=== PATIENT | female | born 1985 | race Caucasian/White ===

== ENCOUNTER 2023-09-05 01:01 | Emergency (ER) | payer BC, OTHER, SELFPAY ==
[2023-09-05 01:05] VITALS: BP 121/88; PULSE 99; RESP 20; TEMP 36.5; O2SAT 96; BMI 20.9
--- NOTE | 2023-09-05 01:14 | ED.ABDPAIN1 ---
HPI - Abdominal Pain General Chief Complaint: Abdominal Pain Stated Complaint: OTHER Time Seen by Provider: 09/05/23 01:06 Source: patient Mode of arrival: walk-in Limitations: no limitations History of Present Illness HPI narrative: Patient developed diarrhea around 9pm, followed shortly by diffuse abdominal pain, worse on upper abdomen just left of center. Nausea but no vomiting. Pain is both sharp and crampy. Patient has been to the bathroom passing liquid stool about 10 times in the last 4 hours. No recent illness or injury. no known spoiled food or concern for food poisoning. PMHx - hysterectomy and nephrectomy (donated a kidney) Related Data Home Medications Medication Instructions Recorded Confirmed dextroamphetamine-amphetamine ER PO 09/05/23 25 mg 24hr capsule,extend release topiramate 25 mg tablet (Topamax) 25 mg PO BID 09/05/23 09/05/23 Previous Rx's Medication Instructions Recorded hyoscyamine sulfate 0.125 mg 0.125 mg PO Q6H PRN abdominal pain 09/05/23 sublingual tablet (Levsin/SL) #20 tabs ondansetron 4 mg disintegrating 4 mg PO Q6H PRN nausea and 09/05/23 tablet vomiting #14 tabs Allergies Allergy/AdvReac Type Severity Reaction Status Date / Time bee venom protein (honey bee) Allergy Verified 09/05/23 01:04 Exam Narrative Exam Narrative: Nurses notes and vital signs reviewed and patient is not hypoxic. afebrile General: Well-appearing and in no apparent distress. Skin: Warm, dry, no pallor noted. No rash. Eye: Pupils are equal, round and EOMI. No scleral icterus. Ears, Nose, Mouth, and Throat: Oral mucosa is dry Cardiovascular: Regular Rate and Rhythm without murmur, gallop or rub. Respiratory: No accessory muscle use or respiratory distress. Lungs are clear to auscultation, no wheezing, rales or rhonchi Back: No midline thoracic or lumbar vertebral tenderness. Right CVA tenderness. No left CVAT Musculoskeletal: normal ROM GI: Abdomen is soft, non-distended. Normal bowel sounds. No masses appreciated. Diffuse abdominal tenderness to palpation. No rebound, guarding, or rigidity noted. Neurological: A&O x4. No cranial nerve dysfunction observed. No truncal ataxia. Moves all extremities. Sensation intact. Psychiatric: Cooperative and interactive. Normal mood and affect. Constitutional Vital Signs, click to edit/add: Last Vital Signs Temp 97.7 F 09/05/23 01:05 Pulse 99 H 09/05/23 01:05 Resp 20 09/05/23 01:05 BP 121/88 09/05/23 01:05 Pulse Ox 96 09/05/23 01:05 O2 Del Method Room Air 09/05/23 01:05 Course Vital Signs Vital signs: Vital Signs Temperature 97.7 F 09/05/23 01:05 Pulse Rate 99 H 09/05/23 01:05 Respiratory Rate 20 09/05/23 01:05 Blood Pressure 121/88 09/05/23 01:05 Pulse Oximetry 96 09/05/23 01:05 Oxygen Delivery Method Room Air 09/05/23 01:05 Temperature 97.7 F 09/05/23 01:05 Pulse Rate 99 H 09/05/23 01:05 Respiratory Rate 20 09/05/23 01:05 Blood Pressure 121/88 09/05/23 01:05 Pulse Oximetry 96 09/05/23 01:05 Oxygen Delivery Method Room Air 09/05/23 01:05 MDM - Abdominal Pain MDM Narrative Medical decision making narrative: Peripheral IV established and blood drawn and sent for testing. The patient was ordered to receive normal saline IV fluid, IV Toradol and IV Zofran for symptoms. I asked that a sample of the diarrhea be sent for testing as well. She was ordered to undergo CT scanning of the abdomen pelvis. Normal CBC and CMP except for mildly elevated Cl. Lipase negative. CT with findings consistent with enteritis. Radiologist's report is detailed. Patient informed of findings/results. She felt better after ED treatment and wants to go home. She was given PO challenge before being discharged home. GI panel revealed Norovirus infection and one fo the ED nurses let her know. Lab Data Attestation: I reviewed the patient's lab results. Labs: Lab Results 09/05/23 09/05/23 Range/Units 01:20 01:30 WBC 10.5 (4.0-11.0) 10^3/uL RBC 4.81 (4.20-5.40) 10^6/uL Hgb 15.1 (12.0-16.0) g/dL Hct 45.5 (36.0-48.0) % MCV 94.6 (81.0-99.0) fL MCH 31.4 (26.7-34.0) pg MCHC 33.2 (29.9-35.2) g/dL RDW 12.6 (11.0-15.0) % Plt Count 165 (150-450) 10^3/uL MPV 10.5 (9.5-13.5) fL Neut % (Auto) 84.6 H (43.0-75.0) % Lymph % (Auto) 8.5 L (20.5-60.0) % [place] % (Auto) 5.6 (1.7-12.0) % Eos % (Auto) 0.8 L (0.9-7.0) % Baso % (Auto) 0.2 (0.2-2.0) % Neut # (Auto) 8.9 H (1.4-6.5) 10^3/uL Lymph # (Auto) 0.9 L (1.2-3.8) 10^3/uL [place] # (Auto) 0.6 (0.3-0.8) 10^3/uL Eos # (Auto) 0.1 (0.0-0.7) 10^3/uL Baso # (Auto) 0.0 (0.0-0.1) 10^3/uL Abs Immat Gran (auto) 0.03 (0.00-0.03) 10^3/uL Imm/Tot Granulo (auto) 0.3 (0.0-0.5) % Sodium 143 (136-145) mmol/L Potassium 3.9 (3.5-5.1) mmol/L Chloride 111 H (98-107) mmol/L Carbon Dioxide 22.2 (21.0-32.0) mmol/L Anion Gap 13.7 BUN 15.0 (7.0-18.0) mg/dL Creatinine 1.07 H (0.55-1.02) mg/dL Est GFR ( Amer) >60 (>=60) Est GFR (Non-Af Amer) 57 L (>=60) BUN/Creatinine Ratio 14.0 Glucose 93 (74-106) mg/dL Calcium 8.9 (8.5-10.1) mg/dL Total Bilirubin 0.9 (0.2-1.0) mg/dL AST 18 (15-37) U/L ALT 31 (14-59) U/L Alkaline Phosphatase 68 (46-116) U/L Total Protein 7.5 (6.4-8.2) g/dL Albumin 4.2 (3.4-5.0) g/dL Globulin 3.3 g/dL Albumin/Globulin Ratio 1.3 Lipase 23.0 (16.0-77.0) U/L Stl C. cayetanensis PCR Not detected (NOT DETECTE) Stool Rotavirus (PCR) Not detected (NOT DETECTE) Stool Adenovirus (PCR) Not detected (NOT DETECTE) Stool Astrovirus (PCR) Not detected (NOT DETECTE) Stool Campylobacter PCR Not detected (NOT DETECTE) Stool Cryptosporidium PCR Not detected (NOT DETECTE) St Sh/Enteroin Ecoli PCR Not detected (NOT DETECTE) Stl Enterotoxigenic E PCR Not detected (NOT DETECTE) Stool EPEC (PCR) Not detected (NOT DETECTE) Stl E. histolytica PCR Not detected (NOT DETECTE) Stool Giardia Lamblia PCR Not detected (NOT DETECTE) Stl P. shigelloides PCR Not detected (NOT DETECTE) Stool Salmonella PCR Not detected (NOT DETECTE) Stool Sapovirus (PCR) Not detected (NOT DETECTE) Stl Shiga-like Tx 1 PCR Not detected (NOT DETECTE) St Y.enterocolitica PCR Not detected (NOT DETECTE) Stl Vibrio cholerae PCR Not detected (NOT DETECTE) Stl Enteroaggr Ecoli PCR Not detected (NOT DETECTE) Stl Norovirus GI/GII PCR Detected A (NOT DETECTE) C. difficile Toxin A&B Not detected (NOT DETECTE) Vibrio Culture Not detected (NOT DETECTE) Imaging Data CT scan - abdomen: Radiologist's impression: ITS Impressions Abdomen/Pelvis CT 09/05/23 01:20 IMPRESSION: 1. Liquid stool throughout the small bowel loops and colon with some mildly dilated fluid-filled loops of small bowel. These findings likely enteritis and diarrhea. 2. Normal appendix. 3. Status post hysterectomy and left nephrectomy. 4. Suspected left ovarian hemorrhagic cyst. Electronically authenticated by: Ap IBRAHIM Date: 09/05/2023 02:10 Discharge Plan Discharge Chief Complaint: Abdominal Pain Clinical Impression: Enteritis, Acute gastroenteropathy due to Norovirus Patient Disposition: Home, Self-Care Time of Disposition Decision: 02:35 Prescriptions / Home Meds: New hyoscyamine sulfate [Levsin/SL] 0.125 mg tablet, sublingual 0.125 mg PO Q6H PRN (Reason: abdominal pain) Qty: 20 0RF ondansetron 4 mg tablet,disintegrating 4 mg PO Q6H PRN (Reason: nausea and vomiting) Qty: 14 0RF No Action dextroamphetamine-amphetamine 25 mg capsule,extended release 24hr PO topiramate [Topamax] 25 mg tablet 25 mg PO BID Instructions: Enteritis (ED) Stand Alone Forms: Portal Instructions Referrals: Physician,Non-Staff, MD [Primary Care Provider] - 1 week Discharge Date/Time: 09/05/23 03:08
--- NOTE | 2023-09-05 01:20 | CT_ITS ---
The [address] [address] Patient Name: CHAD COTA MRN: [id number] date: 1985 Sex: F Assigned Patient Location: ER Current Patient Location: ER Accession/Order Number: [id number] Exam Date: 09/05/2023 01:43 Report Date: 09/05/2023 02:10 At the request of: REX OJNES Procedure: CT abdomen pelvis w con EXAM: CT abdomen pelvis w con HISTORY: abdominal pain, diarrhea COMPARISON: CT abdomen and pelvis examination dated 04/20/2014. TECHNIQUE: Axial CT images through the abdomen and pelvis were obtained after the intravenous administration of 100 mL Omnipaque 300 contrast. Coronal and sagittal reformats were obtained. Dose reduction techniques were achieved by using automated exposure control and/or adjustment of mA and/or kV according to patient size and/or use of iterative reconstruction technique. FINDINGS: There is a calcified granuloma in the right middle lobe. Abdomen: The liver and spleen enhance homogeneously without focal lesion. There is no intra or extrahepatic biliary duct dilatation. The gallbladder is unremarkable. The patient is status post a left nephrectomy. The pancreas, adrenal glands, right kidney, and appendix are unremarkable. There is no mesenteric or retroperitoneal lymphadenopathy. Liquid stool is seen throughout the small bowel loops and colon with some dilated fluid-filled loops of small bowel measuring up to 3.5 cm. Pelvis: The bladder is collapsed and not well evaluated. The rectum is unremarkable. There is no iliac or inguinal lymphadenopathy. The patient is status post a hysterectomy. The right ovary is not seen. There is a left ovarian hemorrhagic cyst. Bone windows show no aggressive osseous lesions. CT/CT abdomen pelvis w con IMPRESSION: 1. Liquid stool throughout the small bowel loops and colon with some mildly dilated fluid-filled loops of small bowel. These findings likely enteritis and diarrhea. 2. Normal appendix. 3. Status post hysterectomy and left nephrectomy. 4. Suspected left ovarian hemorrhagic cyst. Electronically authenticated by: Ap IBRAHIM Date: 09/05/2023 02:10
[2023-09-05] MEDS: 0.9 % SODIUM CHLORIDE 1,000 ML 999 ML IV (01:35)
[2023-09-05] MEDS: ONDANSETRON PF 4 MG/2 ML VIAL IV (01:36)
[2023-09-05] MEDS: KETOROLAC TROMETHAMINE 30 MG/ML VIAL IVP (01:36)
[2023-09-05 01:39] LABS: Adenovirus F 40/41 NOT DETECTED (NOT DETECTE); Astrovirus NOT DETECTED (NOT DETECTE); Campylobacter NOT DETECTED (NOT DETECTE); Cryptosporidium NOT DETECTED (NOT DETECTE); Cyclospora cayetanensis NOT DETECTED (NOT DETECTE); Entamoeba histolytica NOT DETECTED (NOT DETECTE); Enteroaggregative E.coli NOT DETECTED (NOT DETECTE); Enteropathogenic E.coli NOT DETECTED (NOT DETECTE); Enterotoxigenic E. coli NOT DETECTED (NOT DETECTE); Giardia lamblia NOT DETECTED (NOT DETECTE); Plesiomonas shigelloides NOT DETECTED (NOT DETECTE); Rotavirus A NOT DETECTED (NOT DETECTE); Salmonella NOT DETECTED (NOT DETECTE); Sapovirus NOT DETECTED (NOT DETECTE); Shiga-like toxin-producing E.C NOT DETECTED (NOT DETECTE); Shigella/Enteroinvasive E.coli NOT DETECTED (NOT DETECTE); Vibrio NOT DETECTED (NOT DETECTE); Vibrio cholerae NOT DETECTED (NOT DETECTE); Yersinia enterocolitica NOT DETECTED (NOT DETECTE)
[2023-09-05 01:39] LABS: Basophils Percent Auto 0.2 % (0.2-2.0); Eosinophils Absolute Auto 0.1 10^3/uL (0.0-0.7); Eosinophils Percent Auto 0.8 % (0.9-7.0); Hematocrit 45.5 % (36.0-48.0); Hemoglobin 15.1 g/dL (12.0-16.0); Immature Granulocytes Abs Auto 0.03 10^3/uL (0.00-0.03); Immature Granulocytes Pct Auto 0.3 % (0.0-0.5); Lymphocytes Absolute Auto 0.9 10^3/uL (1.2-3.8); Lymphocytes Percent Auto 8.5 % (20.5-60.0); Mean Corpuscular HGB Conc 33.2 g/dL (29.9-35.2); Mean Corpuscular Hemoglobin 31.4 pg (26.7-34.0); Mean Corpuscular Volume 94.6 fL (81.0-99.0); Mean Platelet Volume 10.5 fL (9.5-13.5); Monocytes Absolute Auto 0.6 10^3/uL (0.3-0.8); Monocytes Percent Auto 5.6 % (1.7-12.0); Neutrophils Absolute Auto 8.9 10^3/uL (1.4-6.5); Neutrophils Percent Auto 84.6 % (43.0-75.0); Platelet Count 165 10^3/uL (150-450); Red Blood Count 4.81 10^6/uL (4.20-5.40); Red Cell Distribution Width 12.6 % (11.0-15.0); White Blood Count 10.5 10^3/uL (4.0-11.0)
[2023-09-05 01:54] LABS: Alanine Aminotransferase 31 U/L (14-59); Albumin Globulin Ratio 1.3; Albumin Level 4.2 g/dL (3.4-5.0); Alkaline Phosphatase 68 U/L (46-116); Anion Gap 13.7; Aspartate Amino Transferase 18 U/L (15-37); Bilirubin Total 0.9 mg/dL (0.2-1.0); Calcium 8.9 mg/dL (8.5-10.1); Carbon Dioxide 22.2 mmol/L (21.0-32.0); Chloride 111 mmol/L (98-107); Estimated GFR (African America >60 (>=60); Estimated GFR (Non-African Ame 57 (>=60); Globulin 3.3 g/dL; Glucose 93 mg/dL (74-106); Potassium 3.9 mmol/L (3.5-5.1); Sodium 143 mmol/L (136-145); Total Protein 7.5 g/dL (6.4-8.2)
[2023-09-05] MEDS: PANTOPRAZOLE SODIUM 40 MG VIAL IV (02:10)
[2023-09-05] MEDS: HYOSCYAMINE SULFATE 0.125 MG TAB.SUBL SL (02:56)
[2023-09-05 02:58] LABS: Norovirus GI/GII DETECTED (NOT DETECTE)
== END 2023-09-05 03:08 | disposition home or self-care (01) ==
PROVIDERS: Emergency Provider Emergency Medicine
DX: A08.11 Acute gastroenteropathy due to Norwalk agent (principal); Z90.710 Acquired absence of both cervix and uterus; Z90.5 Acquired absence of kidney; Z79.899 Other long term (current) drug therapy
CPT/HCPCS: 36415; 74177; 80053; 83690; 85025; 87507; 96361; 96374; 96375; 99284; J1885; J2405; Q9967

== ENCOUNTER 2025-05-13 21:47 | Emergency (ER) | payer BC, SELFPAY ==
[2025-05-13 21:57] VITALS: BP 123/82; PULSE 80; TEMP 36.7; O2SAT 100; BMI 19.1
--- NOTE | 2025-05-13 22:17 | CT_ITS ---
The [place] [id number] Patient Name: CHAD COTA MRN: [id number] date: 1985 Sex: F Assigned Patient Location: ER Current Patient Location: .[facility] Accession/Order Number: [id number] Exam Date: 05/13/2025 22:35 Report Date: 05/13/2025 23:05 At the request of: OVIDIO CAVAZOS DO Procedure: CT abdomen pelvis w con CT ABDOMEN AND PELVIS WITH INTRAVENOUS CONTRAST: CLINICAL HISTORY: LUQ pain, rib pain as well COMPARISON: 09 05 2023 TECHNIQUE: Spiral images were obtained through the abdomen and pelvis following the administration of intravenous contrast. This CT exam was performed using one or more following dose reduction techniques: Automated exposure control, adjustment of the mA and/or kV according to patient size, or use of iterative reconstruction technique. FINDINGS: Lung Bases: [No focal opacity] Organs: Punctate right sided calculi, nonobstructive. The liver, spleen, adrenals, right kidney, pancreas unremarkable. Gallbladder contracted. Left kidney is surgically absent. No definite soft tissue within the nephrectomy bed. GI: Mild to moderate retained stool throughout the colon. No bowel obstruction. Appendix unremarkable.[ Pelvis:[Uterus absent. No adnexal mass. Bladder is unremarkable] Peritoneum/Retroperitoneum:No free air or free fluid. Aorta is not aneurysmal. No bulky adenopathy.[ Abd wall/Bones:Minor degenerative changes of the sacroiliac joints. No suspicious osseous lesion. CT/CT abdomen pelvis w con IMPRESSION: Negative Bowel small bowel obstruction Impression dictated by: Yg Mir M.D. 05/13/2025 11:05 PM Dictation Location: [employer] [facility] Electronically authenticated by: [id number] Y Date: 05/13/2025 23:05
[2025-05-13 22:31] LABS: Hematocrit 37.7 % (36.0-48.0); Hemoglobin 12.6 g/dL (12.0-16.0); Immature Granulocytes Abs Auto 0.01 10^3/uL (0.00-0.03); Immature Granulocytes Pct Auto 0.2 % (0.0-0.5); Lymphocytes Absolute Auto 1.5 10^3/uL (1.2-3.8); Mean Corpuscular HGB Conc 33.4 g/dL (29.9-35.2); Mean Corpuscular Hemoglobin 30.7 pg (26.7-34.0); Mean Corpuscular Volume 91.7 fL (81.0-99.0); Platelet Count 174 10^3/uL (150-450); Red Blood Count 4.11 10^6/uL (4.20-5.40); White Blood Count 5.5 10^3/uL (4.0-11.0)
[2025-05-13] MEDS: FAMOTIDINE/PF 20 MG/2 ML VIAL IV (22:31)
[2025-05-13] MEDS: DIAZEPAM 5 MG TABLET PO (22:31)
[2025-05-13] MEDS: KETOROLAC TROMETHAMINE 30 MG/ML VIAL IVP (22:32)
[2025-05-13 22:44] LABS: Alanine Aminotransferase 25 U/L (14-59); Albumin Globulin Ratio 1.3; Albumin Level 3.8 g/dL (3.4-5.0); Alkaline Phosphatase 67 U/L (46-116); Anion Gap 12.6; Aspartate Amino Transferase 13 U/L (15-37); Blood Urea Nitrogen 15.0 mg/dL (7.0-18.0); Calcium 8.8 mg/dL (8.5-10.1); Carbon Dioxide 23.1 mmol/L (21.0-32.0); Chloride 109 mmol/L (98-107); Estimated GFR (African America >60 (>=60 mL/min/1.73m^2); Estimated GFR (Non-African Ame >60 (>=60 mL/min/1.73m^2); Globulin 3.0 g/dL; Glucose 102 mg/dL (74-106); Lipase 25.0 U/L (16.0-77.0); Potassium 3.7 mmol/L (3.5-5.1); Sodium 141 mmol/L (136-145); Total Protein 6.8 g/dL (6.4-8.2)
[2025-05-13 23:01] LABS: Glucose Urine UA NEGATIVE (NEGATIVE)
[2025-05-13 23:08] LABS: Cast Seen? NONE SEEN #/LPF (NONE SEEN); Crystals Seen? None Seen #/HPF (None Seen); Urine Culture Indicated YES-FRMC
--- NOTE | 2025-05-14 01:44 | ED_ITS ---
HPI HPI - General Adult General Chief complaint: Abdominal Pain Stated complaint: Abdominal Pain Time Seen by Provider: 05/13/25 21:51 Source: patient Mode of arrival: walk-in History of Present Illness HPI narrative: Patient is a 40-year-old female presenting to the emergency department for evaluation of left upper quadrant abdominal/rib pain. Patient states her symptoms have been ongoing for the last 10 days and progressively getting worse. She has tried ibuprofen which only minimally helps her symptoms. She states her pain was so severe the other day and that it made her vomit. She denies any trauma. She states she has chronic constipation, but nothing is changed with her bowel habits. She denies any chest pain or shortness of breath. No fevers or chills. She has a history of left nephrectomy from a donation. She denies dysuria or hematuria. Related Data Home Medications ?Medication ?Instructions ?Recorded ?Confirmed dextroamphetamine-amphetamine ER PO 09/05/23 25 mg 24hr capsule,extend release topiramate 25 mg tablet (Topamax) 25 mg PO BID 4 09/05/23 Previous Rx's ?Medication ?Instructions ?Recorded hyoscyamine sulfate 0.125 mg 0.125 mg PO Q6H PRN abdom inal pain 09/05/23 sublingual tablet (Levsin/SL) #20 tabs ondansetron 4 mg disintegrating 4 mg PO Q6H PRN nausea and 09/05/23 tablet vomiting #14 tabs methocarbamol 500 mg tablet 500 mg PO Q8H #20 tabs 05/28 Allergies Allergy/AdvReac Type Severity Reaction Status Date / Time bee venom protein (honey bee) Allergy Hives Verified 05/13/25 21:56 Opioid HPI Opioid Management Most Recent Opioid Data: Last Pain Scale 3 09/05/23, 02:41 Review of Systems ROS Status of ROS 10 or more systems reviewed and unremark able except as noted in history and below PFSH PFSH Social History Little interest or pleasure in doing things: not at all Feeling down, depressed, or hopeless: not at all Exam Narrative Exam Narrative: CONSTITUTIONAL: Appears to be somewhat uncomfortable, answering questions and following commands appropriately SKIN: Was warm and dry, no rashes on the chest/abdomen. EYES: Sclerae white. EARS, NOSE, THROAT: Moist oral mucosa. RESPIRATORY: Clear to auscultation bilaterally, no wheezes, crackles, or stridor, no use of accessory muscles CARDIOVASCULAR: Normal rate and regular rhythm. There is no S3, S4, murmur, rub. GASTROINTESTINAL: Mild tenderness to palpation in the left upper quadrant. No r ebound tenderness or guarding. Nondistended. MUSCULOSKELETAL: There is reproducible tenderness to palpation in left lower ribs at the midclavicular line. NEUROLOGIC: Patient is awake and alert. Facies were symmetrical. Constitutional Vital Signs, click to edit/add: Last Vital Signs Temp 98.1 F 05/13/25 21:57 Pulse 80 05/13/25 21:57 Resp 20 05/13/25 21:57 BP 123/82 05/13/25 21:57 Pulse Ox 100 05/13/25 21:57 O2 Del Method Room Air 05/13/25 21:57 Course Vital Signs Vital signs: Vital Signs Temperature 98.1 F 05/13/25 21:57 Pulse Rate 80 05/13/25 21:57 Respiratory Rate 20 05/13/25 21:57 Blood Pressure 123/82 05/13/25 21:57 Pulse Oximetry 100 05/13/25 21:57 Oxygen Delivery Method Room Air 05/13/25 21:57 Temperature 98.1 F 05/13/25 21:57 Pulse Rate 80 05/13/25 21:57 Respiratory Rate 20 05/13/25 21:57 Blood Pressure 123/82 05/13/25 21:57 Pulse Oximetry 100 05/13/25 21:57 Oxygen Delivery Method Room Air 05/13/25 21:57 Medical Decision Making MDM Narrative Medical decision making narrative: Patient is a 40-year-old female presenting to the emergency department with 10- day history of worsening left upper quadrant abdominal pain and left-sided rib pain. Vital signs arrival are within normal limits. She is afebrile and hemodynamically stable. Examination as noted above. My clinical impression is that the patient symptoms are musculoskeletal in nature as her pain is easily reproducible upon palpation of her ribs. I did order CT scan to rule out i etiologies such as splenic pathologies, pancreatitis, or other intra-abdominal pathologies. IV was established and laboratory studies were obtained. She was treated with oral Valium and IV ketorolac. Laboratory studies were unremarkable. No significant electrolyte or metabolic derangement. No evidence of acute kidney injury. No anemia, leukocytosis, or thrombocytopenia. No transaminitis or hyperbilirubinemia. Lipase not elevated. Urinalysis was unremarkable. CT abdomen/pelvis independently reviewed and interpreted by myself and radiology demonstrated no acute intra-abdominal pathologies. On reevaluation, the patient states her pain is still present. However, I cannot identify any acute, emergent processes that would require hospitalization. Her symptoms are likely musculoskeletal in nature. I do believe the patient is stable for discharge. They were instructed to follow up with their PCP for further care. Return precautions were given including any new or worsening symptoms. They were given a prescription for methocarbamol. Patient understands and agrees to the plan. FINAL IMPRESSION: #Acute left-sided abdominal and rib pain DISPOSITION: Discharged home CONDITION: Fair Lab Data Lab results reviewed: Yes I reviewed the patient's lab results Labs: Lab Results 05/13/25 05/13/25 Range/Units 22:20 22:30 WBC 5.5 (4.0-11.0) 10^3/uL RBC 4.11 L (4.20-5.40) 10^6/uL Hgb 12.6 (12.0-16.0) g/dL Hct 37.7 (36.0-48.0) % MCV 91.7 (81.0-99.0) fL MCH 30.7 (26.7-34.0) pg MCHC 33.4 (29.9-35.2) g/dL RDW 14.6 (11.0-15.0) % Plt Count 174 (150-450) 10^3/uL MPV 10.5 (9.5-13.5) fL Neut % (Auto) 64.2 (43.0-75.0) % Lymph % (Auto) 26.4 (20.5-60.0) % [place] % (Auto) 7.8 (1.7-12.0) % Eos % (Auto) 0.9 (0.9-7.0) % Baso % (Auto) 0.5 (0.2-2.0) % Neut # (Auto) 3.5 (1.4-6.5) 10^3/uL Lymph # (Auto) 1.5 (1.2-3.8) 10^3/uL [place] # (Auto) 0.4 (0.3-0.8) 10^3/uL Eos # (Auto) 0.1 (0.0-0.7) 10^3/uL Baso # (Auto) 0.0 (0.0-0.1) 10^3/uL Abs Immat Gran (auto) 0.01 (0.00-0.03) 10^3/uL Imm/Tot Granulo (auto) 0.2 (0.0-0.5) % Sodium 141 (136-145) mmol/L Potassium 3.7 (3.5-5.1) mmol/L Chloride 109 H (98-107) mmol/L Carbon Dioxide 23.1 (21.0-32.0) mmol/L Anion Gap 12.6 BUN 15.0 (7.0-18.0) mg/dL Creatinine 0.97 (0.55-1.02) mg/dL Est GFR ( Amer) >60 (>=60 mL/min/1.73m^2) Est GFR (Non-Af Amer) >60 (>=60 mL/min/1.73m^2) BUN/Creatinine Ratio 15.5 Glucose 102 (74-106) mg/dL Calcium 8.8 (8.5-10.1) mg/dL Total Bilirubin 0.3 (0.2-1.0) mg/dL AST 13 L (15-37) U/L ALT 25 (14-59) U/L Alkaline Phosphatase 67 (46-116) U/L Total Protein 6.8 (6.4-8.2) g/dL Albumin 3.8 (3.4-5.0) g/dL Globulin 3.0 g/dL Albumin/Globulin Ratio 1.3 Lipase 25.0 (16.0-77.0) U/L Urine Color Lt. yellow (YELLOW) Urine Clarity Clear (CLEAR) Urine pH 7.0 (5.0-9.0) Ur Specific [place] 1.015 (1.005-1.025) Urine Protein Negative (NEG/TRACE) mg/dL Urine Glucose (UA) Negative (NEGATIVE) mg/dL Urine Ketones Negative (NEGATIVE) mg/dL Urine Occult Blood Negative (NEGATIVE) Urine Nitrite Negative (NEGATIVE) Urine Bilirubin Negative (NEGATIVE) Urine Urobilinogen 0.2 (0.2-1.0) EU/dL Ur Leukocyte Esterase Negative (NEGATIVE) Urine RBC None seen (0-2) #/HPF Urine WBC 2-5 A (NONE SEEN) #/HPF Ur Squamous Epith Cells Moderate A (NONE/RARE) #/LPF Urine Crystals None seen (None Seen) #/HPF Amorphous Sediment Many Urine Bacteria Moderate A (NONE SEEN) #/HPF Urine Casts None seen (NONE SEEN) #/LPF Urine Mucus None seen (NONE SEEN) Ur Culture Indicated? [place] [place] scan - abdomen: Attestation: I personally reviewed and interpreted this imaging study as follows: Radiologist's impression: ITS Impressions Abdomen/Pelvis CT 05/13/25 22:17 IMPRESSION: Negative Bowel small bowel obstruction Impression dictated by: Yg Mir M.D. 05/13/2025 11:05 PM Dictation Location: [place] [address] Electronically authenticated by: [id number] Y Date: 05/13/2025 23:05 Discharge Plan Discharge Chief Complaint: Abdominal Pain Clinical Impression: Abdominal pain Patient Disposition: Home, Self-Care Time of Disposition Decision: 23:20 Condition: Good Mode of Transportation: Private Vehicle Prescriptions / Home Meds: New methocarbamol 500 mg tablet 500 mg PO Q8H Qty: 20 0RF No Action dextroamphetamine-amphetamine 25 mg capsule,extended release 24hr PO topiramate [Topamax] 25 mg tablet 25 mg PO BID hyoscyamine sulfate [Levsin/SL] 0.125 mg tablet, sublingual 0.125 mg PO Q6H PRN (Reason: abdominal pain) Qty: 20 0RF ondansetron 4 mg tablet,disintegrating 4 mg PO Q6H PRN (Reason: nausea and vomiting) Qty: 14 0RF Print Language: Hungarian Instructions: Abdominal Pain (ED) Referrals: Physician,Non-Staff, MD [Primary Care Provider] - 1 week Discharge Date/Time: 05/13/25 23:33
== END 2025-05-13 23:33 | disposition home or self-care (01) ==
PROVIDERS: Emergency Provider Student in an Organized Health Care Education/Training Program
DX: R10.12 Left upper quadrant pain (principal); Z90.5 Acquired absence of kidney
CPT/HCPCS: 36415; 74177; 80053; 81001; 83690; 85025; 87086; 96374; 96375; 99285; J1885; J3490; Q9967

== ENCOUNTER 2025-05-18 18:46 | Outpatient (REF) | payer BC, SELFPAY ==
--- OUTSIDE RECORDS SUMMARY | 2025-05-18 10:30 | XMS_ITS | Encounter Summary ---
Author Organization [facility] Address [address] [place] [address] Care Team Providers Care Rigging Man Name Role Phone Gage Bradford MD Primary Care Provider [phone] Reason for Visit * Reason Comments Well Women Visit Encounter Details Date Type Department Care Team (Latest Contact Info) Description 05/18/2025 10:30 AM EDT Procedure Visit [facility] [address] [place] [address] Michelle Pham, DONELL [address] [place] [address] Well woman exam with routine gynecological exam; Encounter for screening mammogram for malignant neoplasm of breast Social History Tobacco Use Types Packs/Day Years Used Date Smoking Tobacco: Never Assessed Comments No Sex and Gender Information Value Date Recorded Sex Assigned at Not on file Legal Sex Female 7:09 PM EDT Gender Identity Not on file Sexual Orientation Not on file documented as of this encounter Last Filed Vital Signs Vital Sign Reading Time Taken Comments Blood Pressure 120/80 05/18/2025 10:42 AM EDT Pulse - - Temperature - - Respiratory Rate - - Oxygen Saturation - - Inhaled Oxygen Concentration - - Weight 54.2 kg (119 lb 8 oz) 05/18/2025 10:42 AM EDT Height - - Body Mass Index - - documented in this encounter Progress Notes * Janet Joy LPN - 05/18/2025 10:30 AM EDT Reason for Appointment: Patient ID: Ryann Fabian is a 40 y.o. female who presents for Well Women Visit Patient presents today for Annual Exam. MEDICATIONS Current Outpatient Medications Medication Instructions amphetamine-dextroamphetamine XR (Adderall XR) 25 MG 24 hr capsule 25 mg, Oral, Every morning topiramate (TOPAMAX) 200 mg, Daily ALLERGIES Allergies[1] PROBLEMS Active Ambulatory Problems Diagnosis Date Noted No Active Ambulatory Problems Resolved Ambulatory Problems Diagnosis Date Noted No Resolved Ambulatory Problems No Additional Past Medical History HISTORY PAST MEDICAL HISTORY SOCIAL HISTORY Medical History[2] Social History Tobacco Use Smoking status: Not on file Smokeless tobacco: Not on file Substance Use Topics Alcohol use: Not on file Drug use: Not on file FAMILY HISTORY Family History[3] SURGICAL HISTORY Surgical History[4] REVIEW OF SYSTEMS Review of Systems: Review of Systems Constitutional: Negative. HENT: Negative. Eyes: Negative. Respiratory: Negative. Cardiovascular: Negative. Gastrointestinal: Negative. Genitourinary: Negative. Musculoskeletal: Negative. Skin: Negative. Neurological: Negative. All other systems reviewed and are negative. Hematological: Negative. Endocrine: Negative. Allergic/Immunologic: Negative. OBJECTIVE Objective: Physical Exam Constitutional: Appearance: Normal appearance. She is well-developed. Genitourinary: Vulva normal. Vaginal cuff intact. Cervix is absent. Uterus is absent. Breasts: Breasts are soft. Right: Normal. Left: Normal. Cardiovascular: Rate and Rhythm: Normal rate and regular rhythm. Abdominal: General: Bowel sounds are normal. There is no distension. Palpations: Abdomen is soft. Tenderness: There is no abdominal tenderness. There is no guarding or rebound. Musculoskeletal: General: No swelling. Normal range of motion. Right lower leg: No edema. Left lower leg: No edema. Neurological: Mental Status: She is alert and oriented to person, place, and time. Skin: General: Skin is warm and dry. Psychiatric: Mood and Affect: Mood normal. Behavior: Behavior normal. Vitals and nursing note reviewed. Exam conducted with a travel assistant present. Vitals: There is no height or weight on file to calculate BMI. BP: 120/80 No LMP recorded (lmp unknown). Patient has had a hysterectomy. ASSESSMENT & PLAN ICD-10-CM 1. Well woman exam with routine gynecological exam Z01.419 THIN PREP TIS PAP AND HR HPV DNA 2. Encounter for screening mammogram for malignant neoplasm of breast Z12.31 No orders of the defined types were placed in this encounter. Annual Wellness Exam (Post Hysterectomy): Patient presents today for routine annual exam. Patient states she has no current complaints. Patients vitals were reviewed and within normal limits. Growth and development is noted to be appropriate for age. Menstrual history is noted to be obsolete due to patients history of hysterectomy. No mental health concerns was expressed. Pap Smear: Speculum was inserted into the vagina and pap was obtained without difficulty. HPV testing was performed per guidelines. Patient was advised that pap results could take anywhere from 7 to 10 days to receive and our office will reach out to the patient with those once we have them. Patient can also view results via [employer]. I reinforced importance of condom use for STI prevention. Patient declined cultures to be performed with today's visit. Breast Exam: Upon examination, clinical breast exam was noted to be normal. Patient was counseled on breast self-awareness, including the importance of knowing what is normal for her own breasts and promptly reporting any changes such as new lumps, skin dimpling, nipple discharge, or pain. Screening mammogram recommended annually beginning at age 40 or earlier if risk factors are present. Discussed signs and symptoms of breast cancer and when to seek medical attention. Answered all patient questions. Follow Up: Patient is to return to our office in one year for annual exam unless needed otherwise. Documented by Janet Joy LPN on behalf of: Moreno Aaron D.O. [1] Allergies Allergen Reactions Other Anaphylaxis WASPS Codeine Morphine [2] History reviewed. No pertinent past medical history. [3] No family history on file. [4] Past Surgical History: Procedure Laterality Date HYSTERECTOMY 2014 documented in this encounter Plan of Treatment Scheduled Orders Name Type Priority Associated Diagnoses Orde r Schedule THIN PREP TIS PAP AND HR HPV DNA Pathology and Cytology Routine Well woman exam with routine gynecological exam Ordered: 05/18/2025 Bilateral screening mammogram Imaging Routine Encounter for screening mammogram for malignant neoplasm of breast Expected: 05/18/2025 (Approximate), Expires: 07/18/2026 documented as of this encounter Visit Diagnoses Diagnosis Well woman exam with routine gynecological exam Routine gynecological examination Encounter for screening mammogram for malignant neoplasm of breast documented in this encounter Care Teams Rigging Man Relationship Specialty Start Date End Date Gage Bradford MD [address] [place] [address] PCP - General Family Medicine 04/18/25 documented as of this encounter
--- OUTSIDE RECORDS SUMMARY | 2025-05-18 18:49 | XMS_ITS | Encounter Summary ---
Author Organization [facility] Address [id number] [place] [address] Care Team Providers Care Service Superintendent Name Role Phone Gage Bradford MD Primary Care Provider [phone] Reason for Visit * Reason Onset Date Comments Med Refill 03/05/2021 Encounter Details Date Type Department Care Team (Late st Contact Info) Description 03/05/2021 Refill [facility] [address] [place] [address] [place] [address] Mary Mayers, CUAUHTEMOC-DOOR TO DOOR SELLING DISTRIBUTOR [address] [place], [place] [id number] Attention deficit hyperactivity disorder (ADHD), combined type Social History Tobacco Use Types Packs/Day Years Used Date Smoking Tobacco: Never Smokeless Tobacco: Never Alcohol Use Standard Drinks/Week Comments Yes 0 (1 standard drink = 0.6 oz pur e alcohol) rare Social Connection and Isolation Panel Answer Date Recorded In a typical week, how many times do you talk on the phone with family, friends, or neighbors? More than three times a week 07/24/2020 How often do you get togethe r with friends or relatives? Twice a week 07/24/2020 Attends Mandaen Services Not on file 07/24 Do you belong to any clubs o r organizations such as jainism groups, unions, fraternal or athletic groups, or school groups? Yes 07/24/2020 How often do you attend meet ings of the clubs or organizations you belong to? More than 4 times per year 07/24/2020 Marital Status Not on file 07/24/2020 AUDIT-C Answer Date Recorded Frequency of Alcohol Consumption 2-4 times a fri09/03/2019 Average Number of Drinks 1 or 2 020 Frequency of Binge Drinking Never 08/06 Overall Financial Resource Strain (CARDIA) Answe r Date Recorded How hard is it for you to pa y for the very basics like food, housing, medical care, and heating? Not very hard 07/24/2020 PHQ-2 Answer Date Recorded Total Score 0 07/24/2020 [facility] [place] of Occupat ional Health - Occupational Stress Questionnaire Answer Date Recorded Do you feel stress - tense, restless, nervous, or anxious, or unable to sleep at night because your mind is troubled all the time - these days? Very much 07/24/2020 Exercise Vital Sign Answer Date Recorde d On average, how many days pe r week do you engage in moderate to strenuous exercise (like a brisk walk)? 3 days 07/24/2020 On average, how many minutes do you engage in exercise at this level? 60 min 07/24/2020 PRAPARE - Transportation Answer Date Re corded Lack of Transportation (Medical) No 09/03/2019 Lack of Transportation (Non-Medical) No 09/03/2019 Childcare Answer Date Recorded Do problems getting child ca re make it difficult for you to work or study? No 07/24/2020 Employment Answer Date Recorded Do you need help finding a [facility] career center and/or a training program? No 07/24/2020 Purpose - Life Answer Date Recorded Purpose and direction in life Unknown Education Answer Date Recorded What is the highest level of school you have completed or the highest degree you have received? Associate degree: academic program 09/03/2019 Comments No Sex and Gender Information Value Date Recorded Sex Assigned at Female 09/03/2019 7:56 AM EST Legal Sex Female 11:31 AM EDT Gender Identity Female 09/03/2019 7:56 AM EST Sexual Orientation Straight 09/03/2019 7: 56 AM EST COVID-19 Exposure Response Date Recorded In the last month, have you been in contact with someone who was confirmed or suspected to have Coronavirus / COVID-19? No / Unsure 03/07/2021 2:57 PM EDT documented as of this encounter Miscellaneous Notes * Telephone Encounter - Neris Diaz CMA - 03/05/2021 11:52 AM EDT lvm to schedule office visit. documented in this encounter Plan of Treatment Not on file documented as of this encounter Visit Diagnoses Diagnosis Attention deficit hyperactivity disorder (ADHD), combined type documented in this encounter Additional Health Concerns Assessment Noted Time PHQ-9 Depression Total Score: 0 07/24/20 20 7:18 PM EST documented as of this encounter Care Teams Service Superintendent Relationship Specialty Start Date End Date Gage Bradford MD [address] [place] [address] PCP - General Internal Medicine 02/18/23 documented as of this encounter
--- OUTSIDE RECORDS SUMMARY | 2025-05-18 18:49 | XMS_ITS | Encounter Summary ---
Author Organization [facility] Address [id number] [place] [address] Care Team Providers Care Sexual Assault Response Coordinator Name Role Phone Gage Bradford MD Primary Care Provider [phone] Encounter Details Date Type Department Care Team (Late st Contact Info) Description 08/18/2020 Orders Only [facility] [address] [place] [address] [place] [phone] Ref Prov, [place] [address] Social History Tobacco Use Types Packs/Day Years [...] or relatives? Twice a week 07/24/2020 Attends Sabianist Services Not on file 07/24 Do you belong to any clubs o r organizations such as gnosticist groups, unions, fraternal or athletic groups, or [...] Answer Date Recorded Total Score 0 07/24/2020 [facility] Occupat ional Health - Occupational Stress [...] Recorded Do you need help finding a [facility] career center and/or a training program? No [...] have Coronavirus / COVID-19? No / Unsure 08/11/2020 8:39 AM EST documented as of this encounter Plan of Treatment Not on file documented as of this encounter Procedures Procedure Name Priority Date/Time Associated Diagnosis Comments DRUG SCREEN, URINE Routine 07/26/2020 documented in this encounter Results * Drug Screen, Urine (07/26/2020) us Not In System Ref Prov URINE ORDERABLES Final Re sult MANUALLY TRANSCRIBED RESULTS documented in this encounter Visit Diagnoses Not on filedocumented in this encounter Additional Health Concerns Assessment Noted Time PHQ-9 Depression Total Score: 0 07/24/20 20 7:18 PM EST documented as of this encounter Care Teams Sexual Assault Response Coordinator Relationship Specialty Start Date End Date Gage Bradford MD [address] [place] [address] PCP - General Internal Medicine 02/18/23 documented as of this encounter
--- OUTSIDE RECORDS SUMMARY | 2025-05-18 18:49 | XMS_ITS | Clinical Summary ---
Author Organization [facility] Address [id number] [place] [address] Care Team Providers Care Inserter Name Role Phone Gage Bradford MD Primary Care Provider [phone] Allergies Active Allergy Reactions Criticality Noted Date Comments Codeine 02/11/2017 Morphine 02/11/2017 Other Anaphylaxis High 02/11/2017 WASPS Medications ibuprofen (ADVIL,MOTRIN) 200 mg tablet Take 1 tablet (200 mg total) by mouth every 6 (six) hours as needed for pain. Active prochlorperazine (COMPAZINE) 10 mg tabletIndications :Migraine without aura and with status migrainosus, not intractable Take 1 tablet (10 mg total) by mouth every 6 (six) hours as needed for nausea or vomiting. 60 tablet 2 3 Active spironolactone (ALDACTONE) 100 mg tablet 4 Active topiramate (TOPAMAX) 200 MG tabletIndications :Migraine without aura and with status migrainosus, not intractable Take 1 tablet (200 mg total) by mouth in the morning and 1 tablet (200 mg total) before bedtime. TAKE 1 TABLET BY MOUTH TWICE DAILY (IN THE MORNING AND BEFORE BEDTIME). 60 tablet 3 5 Active EPINEPHrine 0.3 mg/0.3 mL syringeIndication s:Anaphylaxis, subsequent encounter Inject 0.3 mg as directed 2 (two) times a day as needed (allergic reaction). 1 each 1 5 Active SUMAtriptan (IMITREX) 50 mg tabletIndications :Migraine without aura and with status migrainosus, not intractable Take 1 tablet (50 mg total) by mouth once as needed for migraine. May repeat in 2 hours if unresolved. Do not exceed 200 mg in 24 hours. 30 tablet 2 5 Active atogepant (QULIPTA) 60 mg tabletIndications :Migraine without aura and with status migrainosus, not intractable Take 60 mg by mouth in the morning. 30 tablet 2 5 Active ubrogepant 100 mg tabletIndications :Migraine without aura and with status migrainosus, not intractable Take one tablet at the onset of a headache ; may repeat in 2hrs 12 tablet 2 5 Active amphetamine-dextr oamphetamine XR (ADDERALL XR) 25 mg 24 hr capsuleIndication s:Attention deficit hyperactivity disorder (ADHD), predominantly inattentive type Take 1 capsule (25 mg total) by mouth in the morning. Max Daily Amount: 25 mg. 30 capsule 5 Active amphetamine-dextr oamphetamine XR (ADDERALL XR) 25 mg 24 hr capsuleIndication s:Attention deficit hyperactivity disorder (ADHD), predominantly inattentive type Take 1 capsule (25 mg total) by mouth in the morning. Max Daily Amount: 25 mg. 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 Contact dermatitis due to poison curly 02/08/2020 Migraine without aura and wi th status migrainosus, not intractable 05/05/2019 Attention deficit hyperactivity disorder (ADHD) 05/05/2019 Resolved Problems Problem Noted Date Diagnosed Date Resolved Date Abdominal pain 07/16/2018 03/05/2020 Lateral epicondylitis of left elbow 01/28/2017 03/05/2020 Encounters Date Type Department Care Team Description 05/03/2025 Refill [facility] [address] [place] [phone] Julieth Robins, CUAUHTEMOC-GURDEEP Attention deficit hyperactivity disorder (ADHD), predominantly inattentive type 04/01/2025 Refill [facility] [address] [place] [phone] Gage Bradford MD Attention deficit hyperactivity disorder (ADHD), predominantly inattentive type 02/28/2025 Refill [facility] [address] [place] [phone] Julieth Robins APRN-CNP Attention deficit hyperactivity disorder (ADHD), predominantly inattentive type from Last 3 Months Immunizations Immunization Administration Dates Next Due COVID-19, mRNA, LNP-S, PF, 30mcg/0.3mL Dose 03/04 Influenza (IM) Preservative Free 05/06/2022 Influenza, Injectable, quadrivalent (PF) 020,04/28/2019 Influenza, Unspecified 04/30/2018 MMR 10/01/2017 PPD Test 01/14/2020,03/12/2019 Tdap 10/01/2017 Family History Medical History Relation Name Comments Hypertension Brother 1 Gary Salamanca Jr Other Brother 2 unknown Heart disease Father Gary Salamanca Hyperlipidemia Father Gary Salamanca Hypertension Father Gary Salamanca Colon cancer Maternal Grandfather Yazan Han Multiple sclerosis Mother Ann Marie Salamanca Stroke Mother Ann Marie Salamanca Relation Name Status Comments Brother 1 Gary Salamanca Jr Alive Brother 2 (Age 37) Father Gary Salamanca Alive Maternal Grandfather Yazan Han Mother Ann Marie Salamanca Alive Sister Alive Social History Tobacco Use Types Packs/Day Years Used Date Smoking Tobacco: Never Smokeless Tobacco: Never Tobacco Cessation:Counseling Given: Not Answered Alcohol Use Standard Drinks/Week Comments Yes 2 (1 standard drink = 0.6 oz pur e alcohol) rare Social Connection and Isolation Panel Answer Date Recorded In a typical week, how many times do you talk on the phone with family, friends, or neighbors? Once a week 07/22/2021 How often do you get togethe r with friends or relatives? Once a week 07/22/2021 How often do you attend chur ch or zoroastrian services? More than 4 times per year 07/22/2021 Do you belong to any clubs o r organizations such as sikhism groups, unions, fraternal or athletic groups, or school groups? No 07/22/2021 How often do you attend meet ings of the clubs or organizations you belong to? Patient declined 07/22/2021 Are you , , di vorced, , never , or living with a partner? 07/22/2021 AUDIT-C Answer Date Recorded Q1: How often do you have a drink containing alc ohol? 2-3 times a week 07/22/2021 Q2: How many drinks containi ng alcohol do you have on a typical day when you are drinking? 1 or 2 07/22/2021 Q3: How often do you have si x or more drinks on one occasion? Never 07/22/2021 Overall Financial Resource Strain (CARDIA) Answe r Date Recorded How hard is it for you to pa y for the very basics like food, housing, medical care, and heating? Not hard at all 09/20/2024 PHQ-2 Answer Date Recorded Total Score 0 05/09/2022 [facility] of Occupat ional Health - Occupational Stress Questionnaire Answer Date Recorded Do you feel stress - tense, restless, nervous, or anxious, or unable to sleep at night because your mind is troubled all the time - these days? To some extent 07/22/2021 Exercise Vital Sign Answer Date Recorde d On average, how many days pe r week do you engage in moderate to strenuous exercise (like a brisk walk)? 4 days 07/22/2021 On average, how many minutes do you engage in exercise at this level? 30 min 07/22/2021 PRAPARE - Transportation Answer Date Re corded In the past 12 months, has l ack of transportation kept you from medical appointments or from getting medications? No 09/04 In the past 12 months, has l ack of transportation kept you from meetings, work, or from getting things needed for daily living? No 09/20/2024 Housing Instability Answer Date Recorde d Are you worried or concerned that in the next two months you may not have stable housing that you own, rent or stay in as a part of a household? No 09/20/2024 Childcare Answer Date Recorded Do problems getting child ca re make it difficult for you to work or study? No 07/22/2021 Employment Answer Date Recorded Do you need help finding a [facility] career center and/or a training program? No 07/22/2021 Hunger Screening Answer Date Recorded Within the past 12 months we worried whether our food would run out before we got money to buy more. Never True 01/05/2025 Within the past 12 months th e food we bought just didn't last and we didn't have money to get more. Never True 01/05/2025 Purpose - Life Answer Date Recorded I have a purpose and direction in my life. Stron gly Agree 07/22/2021 Education Answer Date Recorded What is the [...] Orientation Straight 09/03/2019 7: 56 AM EST Last Filed Vital Signs Vital Sign Reading Time Taken Comments Blood Pressure 96/64 01/05/2025 8:26 AM EDT Pulse 71 01/05/2025 8:26 AM EDT Temperature 36.6 C (97.8 F) 01/05/2025 8:26 AM EDT Respiratory Rate 18 11/29/2022 7:55 AM EDT Oxygen Saturation 99% 01/05/2025 8:26 AM EDT Inhaled Oxygen Concentration - - Weight 56.6 kg (124 lb 12.8 oz) 01/05/2025 8:26 AM EDT Height 157.5 cm (5' 2 ) 01/05/2025 8:26 AM EDT Body Mass Index 22.83 01/05/2025 8:26 AM EDT Plan of Treatment Health Maintenance Due Date Last Done Comments Depression Screening 1997 COVID-19 Vaccine (2024-2 6 season) 2025 04/10/2021, 03/15/2021 Influenza Vaccine 04/04/2025 06/09/2024, , 05/06/2022, Additional history exists Adult BMI Screening 01/05/2026 01/05/2025 Tobacco Screening 01/05/2026 01/05/2025 DTaP,Tdap and Td Vaccines (2 - Td or Tdap) 10/01/2027 10/01/2017 Medical Devices Not on file Insurance ANTHEM Care Teams Inserter Relationship Specialty Start Date End Date Gage Bradford MD [address] [place] [address] PCP - General Internal Medicine 02/18/23
--- OUTSIDE RECORDS SUMMARY | 2025-05-18 18:49 | XMS_ITS | Encounter Summary ---
Author Organization [facility] Address [id number] [place] [address] Care Team Providers Care Linux Systems Analyst Name Role Phone Gage Bradford MD Primary Care Provider [phone] Encounter Details Date Type Department Care Team (Late st Contact Info) Description 09/14/2020 Telephone [facility] [address] [place] [address] [place] [phone] Andre Gomez CMA Social History Tobacco Use Types Packs/Day Years [...] or relatives? Twice a week 07/24/2020 Attends Episcopalian Services Not on file 07/24 Do you belong to any clubs o r organizations such as rastafari groups, unions, fraternal or athletic groups, or [...] Answer Date Recorded Total Score 0 07/24/2020 [facility] of Occupat ional Health - Occupational Stress [...] Recorded Do you need help finding a [employer] career center and/or a training program? No [...] have Coronavirus / COVID-19? No / Unsure 09/08/2020 8:48 AM EST documented as of this encounter Miscellaneous Notes * Telephone Encounter - Andre Hernandez CMA - 09/14/2020 1:32 PM EST I called Ryann to inform her that [facility] doesn't take her insurance and I asked her if she'd like me to send it to [facility] dermatology. She said she'd like to wait because she'll be getting new insurance in a few weeks and she'll just call me back and have me resend her referral to [facility]. Andre Hernandez CMA 09/14/20 1334 documented in this encounter Plan of Treatment Not on file documented as of this encounter Visit Diagnoses Not on filedocumented in this encounter Additional Health Concerns Assessment Noted Time PHQ-9 Depression Total Score: 0 07/24/20 20 7:18 PM EST documented as of this encounter Care Teams Linux Systems Analyst Relationship Specialty Start Date End Date Gage Bradford MD [address] [facility] [place] [address] PCP - General Internal Medicine 02/18/23 documented as of this encounter
--- OUTSIDE RECORDS SUMMARY | 2025-05-18 18:49 | XMS_ITS | Encounter Summary ---
Author Organization [facility] Address [id number] [address] [place] [address] Care Team Providers Care Extrusion Die Template Maker Name Role Phone Gage Bradford MD Primary Care Provider [phone] Reason for Visit * Reason Onset Date Comments Med Refill 10/27/2020 Encounter Details Date Type Department Care Team (Late st Contact Info) Description 10/27/2020 Refill [facility] [address] [place] [address] [place] [address] Mary Mayers, CUAUHTEMOC-AUTOMATION QA ANALYST [address] [place], [place] [id number] Attention deficit hyperactivity disorder (ADHD), combined type [...] or relatives? Twice a week 07/24/2020 Attends Catholic Services Not on file 07/24 Do you belong to any clubs o r organizations such as taoist groups, unions, fraternal or athletic groups, or [...] Answer Date Recorded Total Score 0 07/24/2020 [facility] [place] of Occupat ional Health - Occupational Stress [...] Recorded Do you need help finding a [facility] career center and/or a training [...] have Coronavirus / COVID-19? No / Unsure 10/30/2020 11:06 AM EDT documented as of this encounter Plan of Treatment Not on file documented as of this encounter Visit Diagnoses Diagnosis Attention deficit hyperactivity disorder (ADHD), combined type documented in this encounter Additional Health Concerns Assessment Noted Time PHQ-9 Depression Total Score: 0 07/24/20 20 7:18 PM EST documented as of this encounter Care Teams Extrusion Die Template Maker Relationship Specialty Start Date End Date Gage Bradford MD [address] [facility] [place] [address] PCP - General Internal Medicine 02/18/23 documented as of this encounter
--- OUTSIDE RECORDS SUMMARY | 2025-05-18 18:49 | XMS_ITS | Encounter Summary ---
Author Organization [facility] Address [id number] [address] [place] [address] Care Team Providers Care Grant Administrator Name Role Phone Gage Bradford MD Primary Care Provider [phone] Encounter Details Date Type Department Care Team (Late st Contact Info) Description 09/23/2022 Refill [facility] [address] [place] [address] [place] [address] Debbie Hou CMA Attention deficit hyperactivity disorder (ADHD), predominantly inattentive type Social History Tobacco Use Types Packs/Day [...] often do you attend chur ch or yazidi services? More than 4 times per year 07/22/2021 Do you belong to any clubs o r organizations such as restoration groups, unions, fraternal or athletic groups, or [...] care, and heating? Not hard at all 07/22/2021 PHQ-2 Answer Date Recorded Total Score 0 05/09/2022 [facility] [place] of Occupat ional Health - Occupational Stress [...] medical appointments or from getting medications? No 07/04 In the past 12 months, has l ack of transportation kept you from meetings, work, or from getting things needed for daily living? No 07/22/2021 Childcare Answer Date Recorded Do problems getting child ca re make it difficult for you to work or study? No 07/22/2021 Employment Answer Date Recorded Do you need help finding a l ocal career center and/or a training program? No 07/22/2021 Purpose - Life Answer Date Recorded I have a purpose and direction in my life. Laverne mazariegos Agree 07/22/2021 Education Answer Date Recorded What [...] have Coronavirus / COVID-19? No / Unsure 09/24/2022 7:55 AM EST documented as of this encounter Plan of Treatment Not on file documented as of this encounter Visit Diagnoses Diagnosis Attention deficit hyperactivity disorder (ADHD), predominantly inattentive type documented in this encounter Additional Health Concerns Assessment Noted Time PHQ-9 Depression Total Score: 0 05/09/20 22 7:49 AM EDT documented as of this encounter Care Teams Grant Administrator Relationship Specialty Start Date End Date Gage Bradford MD 605 [facility] [place] [address] PCP - General Internal Medicine 02/18/23 documented as of this encounter
--- OUTSIDE RECORDS SUMMARY | 2025-05-18 18:49 | XMS_ITS | Encounter Summary ---
Author Organization [facility] Address [id number] [address] [place] [address] Care Team Providers Care Care Professionals Name Role Phone Gage Bradford MD Primary Care Provider [phone] Reason for Visit * Reason Onset Date Comments Med Refill 09/07/2020 Encounter Details Date Type Department Care Team (Late st Contact Info) Description 09/07/2020 Refill [facility] [address] [place] [address] [place] [address] Mary Mayers, CUAUHTEMOC-ORE DIGGER [address] [place], [place] [id number] Attention deficit hyperactivity disorder (ADHD), unspecified ADHD type; Migraine without aura and with status migrainosus, not intractable Social History Tobacco Use Types Packs/Day Years [...] or relatives? Twice a week 07/24/2020 Attends Religion Services Not on file 07/24 Do you belong to any clubs o r organizations such as mosque groups, unions, fraternal or athletic groups, or school groups? Yes 07/24/2020 How often do you attend meet ings of the clubs or organizations you belong to? More than 4 times per year 07/24/2020 Marital Status Not on file 07/24/2020 AUDIT-C Answer Date Recorded Frequency of Alcohol Consumption 2-4 times a mon 09/03/2019 Average Number of Drinks 1 or 2 020 Frequency of Binge Drinking Never 08/06 Overall Financial Resource Strain (CARDIA) Answe r Date Recorded How hard is it for you to pa y for the very basics like food, housing, medical care, and heating? Not very hard 07/24/2020 PHQ-2 Answer Date Recorded Total Score 0 07/24/2020 [facility] [place] of Occupat ional Health - Occupational Stress [...] Recorded Do you need help finding a [facility] career center and/or a training program? [...] Diagnoses Diagnosis Attention deficit hyperactivity disorder (ADHD), unspecified ADHD type Migraine without aura and with status migrainosus, not intractable documented in this encounter Additional Health Concerns Assessment Noted Time PHQ-9 Depression Total Score: 0 07/24/20 20 7:18 PM EST documented as of this encounter Care Teams Care Professionals Relationship Specialty Start Date End Date Gage Bradford MD [address] [facility] [address] [place] [address] PCP - General Internal Medicine 02/18/23 documented as of this encounter
--- OUTSIDE RECORDS SUMMARY | 2025-05-18 18:49 | XMS_ITS | Encounter Summary ---
Author Organization [facility] Address [id number] [address] [place] [address] Care Team Providers Care Catering Truck Operator Name Role Phone Gage Bradford MD Primary Care Provider [phone] Reason for Visit * Reason Onset Date Comments Med Refill 04/11/2021 Encounter Details Date Type Department Care Team (Late st Contact Info) Description 04/11/2021 Refill [facility] [address] [place] [address] [place] [address] Neris Diaz CMA Social History Tobacco Use Types Packs/Day [...] or relatives? Twice a week 07/24/2020 Attends Oriental Orthodox Services Not on file 07/24 Do you belong to any clubs o r organizations such as baptism groups, unions, fraternal or athletic groups, or [...] Answer Date Recorded Total Score 0 07/24/2020 [facility] of Occupat ional Health - Occupational Stress [...] Recorded Do you need help finding a [facility] career center and/or a training program? No [...] Orientation Straight 09/03/2019 7: 56 AM EST documented as of this encounter Plan of Treatment Not on file documented as of this encounter Visit Diagnoses Not on filedocumented in this encounter Additional Health Concerns Assessment Noted Time PHQ-9 Depression Total Score: 0 07/24/20 20 7:18 PM EST documented as of this encounter Care Teams Catering Truck Operator Relationship Specialty Start Date End Date Gage Bradford MD [address] [facility] [place] [address] PCP - General Internal Medicine 02/18/23 documented as of this encounter
--- OUTSIDE RECORDS SUMMARY | 2025-05-18 18:49 | XMS_ITS | Encounter Summary ---
Author Organization [facility] Address [id number] [address] [place] [address] Care Team Providers Care Biodiesel Operations Manager Name Role Phone Gage Bradford MD Primary Care Provider [phone] Reason for Visit * Reason Onset Date Comments Med Refill 09/14/2018 Encounter Details Date Type Department Care Team (Late st Contact Info) Description 09/14/2018 Refill [facility] [address] [place] [address] [place] [address] Mary Mayers, CUAUHTEMOC-RECONSIGNMENT CLERK [address] [place] [address] [place], [place] [id number] Attention deficit hyperactivity disorder (ADHD), unspecified ADHD type Social History Tobacco Use Types Packs/Day Years Used Date Smoking Tobacco: Never Smokeless Tobacco: Never Alcohol Use Standard Drinks/Week Comments Yes 0 (1 standard drink = 0.6 oz pur e alcohol) rare PHQ-2 Answer Date Recorded PHQ-2 Score 9 07/30/2018 Comments No Sex and Gender Information Value [...] deficit hyperactivity disorder (ADHD), unspecified ADHD type documented in this encounter Additional Health Concerns Assessment Noted Time PHQ-9 Depression Total Score: 9 11/22/19 18 10:00 AM EDT documented as of this encounter Care Teams Biodiesel Operations Manager Relationship Specialty Start Date End Date Gage Bradford MD [address] [facility] [place] [address] PCP - General Internal Medicine 02/18/23 documented as of this encounter
--- OUTSIDE RECORDS SUMMARY | 2025-05-18 18:50 | XMS_ITS | Encounter Summary ---
Author Organization [facility] Address [address] [place] [address] Care Team Providers Care Radio Intelligence Operator Name Role Phone Gage Bradford MD Primary Care Provider Encounter Details Date Type Department Care Team (Latest Contact Info) Description 05/17/2025 Travel Social History Tobacco Use Types Packs/Day Years Used Date Smoking Tobacco: Never Assessed Comments Unknown Sex and Gender Information Value Date Recorded Sex Assigned at Not on file Legal Sex Female 7:09 PM EDT Gender Identity Not on file Sexual Orientation Not on file documented as of this encounter Plan of Treatment Not on file documented as of this encounter Visit Diagnoses Not on filedocumented in this encounter Care Teams Radio Intelligence Operator Relationship Specialty Start Date End Date Gage Bradford MD 605 [facility] [place] [address] PCP - General Family Medicine 04/18/25 documented as of this encounter
--- OUTSIDE RECORDS SUMMARY | 2025-05-18 18:50 | XMS_ITS | Encounter Summary ---
Author Organization [facility] Address [id number] [address] [place] [address] Care Team Providers Care Network Support Name Role Phone Gage Bradford MD Primary Care Provider [phone] Encounter Details Date Type Department Care Team (Late st Contact Info) Description 05/13/2017 Orders Only [facility] [address] [place] [address] [place] [id number] Dwayne Ward, DO [address] [facility] [address] [place] [address] Social History Tobacco Use Types Packs/Day Years Used Date Smoking Tobacco: Never Smokeless Tobacco: Never Alcohol Use Standard Drinks/Week Comments Yes 0 (1 standard drink = 0.6 oz pur e alcohol) Comments No Sex and Gender Information Value [...] Noted Time PHQ-9 Depression Total Score: 0 02/12/20 17 12:00 PM EDT documented as of this encounter Care Teams Network Support Relationship Specialty Start Date End Date Gage Bradford MD [address] [facility] [place] [address] PCP - General Internal Medicine 02/18/23 documented as of this encounter
--- OUTSIDE RECORDS SUMMARY | 2025-05-18 18:50 | XMS_ITS | Encounter Summary ---
Author Organization [facility] Address [id number] [address] [place] [address] Care Team Providers Care Couture Dressmaker Name Role Phone Gage Bradford MD Primary Care Provider [phone] Encounter Details Date Type Department Care Team (Late st Contact Info) Description 07/11/2023 Orders Only [facility] [address] [place] [address] Gage Bradford MD [address] [place] [address] Social History Tobacco Use Types Packs/Day Years [...] often do you attend chur ch or jainism services? More than 4 times per year 07/22/2021 Do you belong to any clubs o r organizations such as yazdanism groups, unions, fraternal or athletic groups, or [...] Answer Date Recorded Total Score 0 05/09/2022 [facility] Questionnaire Answer Date Recorded [...] Recorded Do you need help finding a [employer] career center and/or a training program? No 07/22/2021 Hunger Screening Answer Date Recorded Within the past 12 months we worried whether our food would run out before we got money to buy more. Never True 07/11/2023 Within the past 12 months th e food we bought just didn't last and we didn't have money to get more. Never True 07/11/2023 Purpose - Life Answer Date Recorded I [...] documented as of this encounter Care Teams Couture Dressmaker Relationship Specialty Start Date End Date Gage Bradford MD [address] [facility] [place] [address] PCP - General Internal Medicine 02/18/23 documented as of this encounter
--- OUTSIDE RECORDS SUMMARY | 2025-05-18 18:50 | XMS_ITS | Encounter Summary ---
Author Organization [facility] Address [id number] [address] [place] [address] Care Team Providers Care Clinical Trial Manager Name Role Phone Gage Bradford MD Primary Care Provider [phone] Reason for Visit * Reason Onset Date Comments Med Refill 05/02/2020 Encounter Details Date Type Department Care Team (Late st Contact Info) Description 05/02/2020 Refill [facility] [address] [place] [address] [place] [address] Mary Mayers, COMPUTER SYSTEM SPECIALIST-POWERHOUSE MECHANIC HELPER [address] [facility] [address] [place] [id number] Attention deficit hyperactivity disorder (ADHD), unspecified ADHD type; Migraine without aura and with status migrainosus, not intractable Social History Tobacco Use Types Packs/Day Years Used Date Smoking Tobacco: Never Smokeless Tobacco: Never Alcohol Use Standard Drinks/Week Comments Yes 0 (1 standard drink = 0.6 oz pur e alcohol) rare Social Connection and Isolation Panel Answer Date Recorded Frequency of Communication w ith Friends and Family Three times a week 09/03/2019 Frequency of Social Gatherin gs with Friends and Family Once a week 09/03/2019 Attends Yazidi Services More than 4 times per year 09/03/2019 Active Member of Clubs or Organizations No 09/03/2019 Attends Club or Organization Meetings Never 09/03/2019 Marital Status 09/03/2019 AUDIT-C Answer Date Recorded Frequency of Alcohol Consumption 2-4 times a fri09/03/2019 Average Number of Drinks 1 or 2 020 Frequency of Binge Drinking Never 08/06 Overall Financial Resource Strain (CARDIA) Answe r Date Recorded Difficulty of Paying Living Expenses Not hard at all 09/03/2019 PHQ-2 Answer Date Recorded PHQ-2 Score 0 03/12/2019 [facility] [place] of Occupat ional Health - Occupational Stress Questionnaire Answer Date Recorded Feeling of Stress Not at all 09/03/2019 Exercise Vital Sign Answer Date Recorde d Days of Exercise per Week 0 days 2019 Minutes of Exercise per Session 0 min 09/03/2019 PRAPARE - Transportation Answer Date Re corded Lack of Transportation (Medical) No 09/03/2019 Lack of Transportation (Non-Medical) No 09/03/2019 Childcare Answer Date Recorded Childcare No 09/03/2019 Employment Answer Date Recorded Employment No 09/03/2019 Education Answer Date Recorded What is the [...] Noted Time PHQ-9 Depression Total Score: 0 03/06/20 20 2:00 PM EDT documented as of this encounter Care Teams Clinical Trial Manager Relationship Specialty Start Date End Date Gage Bradford MD [address] [facility] [address] PCP - General Internal Medicine 02/18/23 documented as of this encounter
--- OUTSIDE RECORDS SUMMARY | 2025-05-18 18:50 | XMS_ITS | Encounter Summary ---
Author Organization [facility] Address [address] [facility] [place] [address] Care Team Providers Care Sample Grader Name Role Phone Gage Bradford MD Primary Care Provider [phone] Encounter Details Date Type Department Care Team (Late st Contact Info) Description 05/18/2025 Bamboo flowsheet [facility] [address] [place] [address] Michelle Pham, DONELL [address] [facility] [place] [address] Social History Tobacco Use Types Packs/Day Years [...] on filedocumented in this encounter Care Teams Sample Grader Relationship Specialty Start Date End Date Gage Bradford MD [address] [place] [address] PCP - General Family Medicine 04/18/25 documented as of this encounter
--- OUTSIDE RECORDS SUMMARY | 2025-05-18 18:50 | XMS_ITS | Encounter Summary ---
Author Organization [facility] Address [id number] [address] [place] [address] Care Team Providers Care Dumpcart Driver Name Role Phone Gage Bradford MD Primary Care Provider [phone] Reason for Visit * Reason Onset Date Comments Med Refill 11/25/2022 Encounter Details Date Type Department Care Team (Late st Contact Info) Description 11/25/2022 Refill [facility] [address] [place] [address] Gage Bradford MD [address] [place] [address] Attention deficit hyperactivity disorder (ADHD), predominantly inattentive [...] often do you attend chur ch or moravian services? More than 4 times per year [...] Answer Date Recorded Total Score 0 05/09/2022 [facility] of Occupat ional [facility] - Occupational Stress Questionnaire Answer Date Recorded [...] got money to buy more. Never True 11/29/2022 Within the past 12 months th e food we bought just didn't last and we didn't have money to get more. Never True 11/29/2022 Purpose - Life Answer Date Recorded I [...] documented as of this encounter Care Teams Dumpcart Driver Relationship Specialty Start Date End Date Gage Bradford MD [address] [facility] [place] [address] PCP - General Internal Medicine 02/18/23 documented as of this encounter
--- OUTSIDE RECORDS SUMMARY | 2025-05-18 18:50 | XMS_ITS | Clinical Summary ---
Author Organization [facility] Healthcare Address [address] [facility] [place] [address] Care Team Providers Care Rate Clerk Name Role Phone Gage Bradford MD Primary Care Provider [phone] Allergies Active Allergy Reactions Criticality Noted Date Comments Codeine 02/11/2017 Morphine 02/11/2017 Other Anaphylaxis High 02/11/2017 WASPS Medications topiramate (Topamax) 100 MG tablet Take 200 mg by mouth Daily 4 Active amphetamine-dextroa mphetamine XR (Adderall XR) 25 MG 24 hr capsule Take 25 mg by mouth in the morning. Active metroNIDAZOLE (Flagyl) 500 MG tabletIndications:C ervicitis and endocervicitis Take 1 tablet (500 mg) by mouth in the morning and 1 tablet (500 mg) before bedtime. Do all this for 7 days. Do not drink alcohol while taking this medication. 14 tablet 5 04/25/20 25 fluconazole (Diflucan) 150 MG tabletIndications:Y east infection Take 1 tablet (150 mg) by mouth 1 (one) time for 1 dose This is a 1 time dose, take single tablet by mouth. 1 tablet 5 04/20/20 25 Encounters Date Type Department Care Team Description 05/18/2025 10:30 AM EDT [place] [phone] Michelle Pham NP Well woman exam with routine gynecological exam; Encounter for screening mammogram for malignant neoplasm of breast 05/18/2025 Bamboo [place] [id number] Michelle Pham NP 05/17/2025 Travel 04/20/2025 Telephone [facility] [address] [facility] [place] [phone] Luz Villanueva HOSSEIN 04/18/2025 1:30 PM EDT Office Visit [facility] [place] [phone] Moreno Aaron DO Cervicitis and endocervicitis (Primary Dx); Mass of right breast, unspecified quadrant; Breast lump on right side at 10 o'clock position 04/18/2025 External Result Encounter [facility] External Department Unsolicited Moreno Aaron DO 04/18/2025 Bamboo flowsheet [facility] [facility] [address] [place], [place] [address] [phone] Moreno Aaron DO from Last 3 Months Social History Tobacco Use Types Packs/Day Years Used Date Smoking Tobacco: Never Assessed Comments No Sex and Gender Information Value Date Recorded Sex Assigned at Not on file Legal Sex Female 7:09 PM EDT Gender Identity Not on file Sexual Orientation Not on file Last Filed Vital Signs Vital Sign Reading Time Taken Comments Blood Pressure 120/80 05/18/2025 10:42 AM EDT Pulse - - Temperature - - Respiratory Rate - - Oxygen Saturation - - Inhaled Oxygen Concentration - - Weight 54.2 kg (119 lb 8 oz) 05/18/2025 10:42 AM EDT Height - - Body Mass Index - - Plan of Treatment Health Maintenance Due Date Last Done Comments Pap Smear 2006 Cervical Cancer Screening 2015 HPV/Cotest 2015 Mammogram 2025 Influenza Vaccine (#1) 2025 4, 05/06/2022, 05/10/2020, Additional history exists Procedures Procedure Name Priority Date/Time Associated Diagnosis Comments RECURRENT VAGINITIS (HTRX) Routine 04/18/2025 3:31 PM EDT from Last 3 Months Results * (ABNORMAL) RECURRENT VAGINITIS (HTRX) (04/18/2025 3:31 PM EDT) [facility] ATOPOBIUM VAGINAE 17.072(A) 19.961 - 24.689 ppm 04/19/2025 6:15 AM EDT [facility] ATOPOBIUM VAGINAE Detected(A) 19.961 - 24.689 ppm 04/19/2025 6:15 AM EDT [facility] BVAB 2,3 (BACTERIAL VAGINOSIS ASSOCIATED BACTERIA 2, 3); MOBILUNCUS SPP 0 19.961 - 24.689 ppm 04/19/2025 6:15 AM EDT [facility] BVAB 2,3 (BACTERIAL VAGINOSIS ASSOCIATED BACTERIA 2, 3); MOBILUNCUS SPP Not Detected 19.961 - 24.689 ppm 04/19/2025 6:15 AM EDT [facility] ANGELA ALBICANS, PARAPSILOSIS, TROPICALIS 24.478(A) 23.000 - 30.347 ppm 04/19/2025 6:15 AM EDT [facility] ANGELA ALBICANS, PARAPSILOSIS, TROPICALIS Detected(A) 23.000 - 30.347 ppm 04/19/2025 6:15 AM EDT [facility] ANGELA GLABRATA 0 23.000 - 31.618 ppm 04/19/2025 6:15 AM EDT [facility] ANGELA GLABRATA Not Detected 23.000 - 31.618 ppm 04/19/2025 6:15 AM EDT [facility] ANGELA KRUSEI 0 23.000 - 30.873 ppm 04/19/2025 6:15 AM EDT [facility] ANGELA KRUSEI Not Detected 23.000 - 30.873 ppm 04/19/2025 6:15 AM EDT [facility] CHLAMYDIA TRACHOMATIS 0 23.000 - 31.586 ppm 04/19/2025 6:15 AM EDT [facility] CHLAMYDIA TRACHOMATIS Not Detected 23.000 - 31.586 ppm 04/19/2025 6:15 AM EDT [facility] GARDNERELLA VAGINALIS 0 19.961 - 24.689 ppm 04/19/2025 6:15 AM EDT [facility] GARDNERELLA VAGINALIS Not Detected 19.961 - 24.689 ppm 04/19/2025 6:15 AM EDT [facility] MEGASPHAERA (TYPES 1, 2) 0 19.961 - 24.689 ppm 04/19/2025 6:15 AM EDT [facility] MEGASPHAERA (TYPES 1, 2) Not Detected 19.961 - 24.689 ppm 04/19/2025 6:15 AM EDT [facility] NEISSERIA GONORRHOEAE 0 23.000 - 32.587 ppm 04/19/2025 6:15 AM EDT [facility] NEISSERIA GONORRHOEAE Not Detected 23.000 - 32.587 ppm 04/19/2025 6:15 AM EDT [facility] TRICHOMONAS VAGINALIS 0 23.000 - 31.995 ppm 04/19/2025 6:15 AM EDT [facility] TRICHOMONAS VAGINALIS Not Detected 23.000 - 31.995 ppm 04/19/2025 6:15 AM EDT [facility] MYCOPLASMA GENITALIUM 0 19.961 - 24.689 ppm 04/19/2025 6:15 AM EDT [facility] MYCOPLASMA GENITALIUM Not Detected 19.961 - 24.689 ppm 04/19/2025 6:15 AM EDT [facility] Tissue 04/18/2025 3:31 PM EDT 04/19/2025 1:23 AM EDT us Moreno Aaron DO LAB BLOOD ORDERABLES Final Resul t [facility] [address] [place] [address] from Last 3 Months Insurance Critical access hospital[address] [address] [employer] Care Teams Rate Clerk Relationship Specialty Start Date End Date Gage Bradford MD [address] [facility] [place] [address] PCP - General Family Medicine 04/18/25
--- OUTSIDE RECORDS SUMMARY | 2025-05-18 18:50 | XMS_ITS | Encounter Summary ---
Author Organization [facility] Address [id number] [address] [place] [address] Care Team Providers Care Manager Food Name Role Phone Gage Bradford MD Primary Care Provider [phone] Reason for Visit * Reason Onset Date Comments Med Refill 11/22/2022 Encounter Details Date Type Department Care Team (Late st Contact Info) Description 11/22/2022 Refill [facility] [address] [place] [address] Gage Bradford MD [address] [place] [address] Attention deficit hyperactivity disorder (ADHD), predominantly [...] often do you attend chur ch or restoration services? More than 4 times per year 07/22/2021 Do you belong to any clubs o r organizations such as zoroastrian groups, unions, fraternal or athletic groups, or [...] Answer Date Recorded Total Score 0 05/09/2022 [facility] of Occupat ional [facility] - Occupational Stress Questionnaire Answer Date Recorded [...] documented as of this encounter Care Teams Manager Food Relationship Specialty Start Date End Date Gage Bradford MD [address] [place] [address] PCP - General Internal Medicine 02/18/23 documented as of this encounter
--- OUTSIDE RECORDS SUMMARY | 2025-05-18 18:50 | XMS_ITS | Encounter Summary ---
Author Organization [facility] Address [id number] [address] [place] [address] Care Team Providers Care Lab Tech Name Role Phone Gage Bradford MD Primary Care Provider [phone] Encounter Details Date Type Department Care Team (Late st Contact Info) Description 01/05/2025 Orders Only [facility] [address] [place] [address] [place] [address] Misa Fagan CMA Attention deficit hyperactivity disorder (ADHD), predominantly inattentive type; Medication management Social History Tobacco Use Types Packs/Day Years Used Date Smoking Tobacco: Never Smokeless Tobacco: Never Alcohol Use Standard Drinks/Week Comments Yes 2 [...] often do you attend chur ch or rastafari services? More than 4 times per year 07/22/2021 Do you belong to any clubs o r organizations such as islam groups, unions, fraternal or athletic groups, or [...] Answer Date Recorded Total Score 0 05/09/2022 [facility] of Occupat ional Health - Occupational Stress [...] Recorded Do you need help finding a [facility] and/or a training program? No [...] deficit hyperactivity disorder (ADHD), predominantly inattentive type Medication management documented in this encounter Additional Health Concerns Assessment Noted Time PHQ-9 Depression Total Score: 0 05/09/20 22 7:49 AM EDT documented as of this encounter Care Teams Lab Tech Relationship Specialty Start Date End Date Gage Bradford MD [address] [facility] [place] [address] PCP - General Internal Medicine 02/18/23 documented as of this encounter
--- OUTSIDE RECORDS SUMMARY | 2025-05-18 18:50 | XMS_ITS | Encounter Summary ---
Author Organization [facility] Address [id number] [address] [place] [address] Care Team Providers Care Rubber Press Operator Name Role Phone Gage Bradford MD Primary Care Provider [phone] Reason for Visit * Reason Onset Date Comments Med Refill 08/14/2017 Encounter Details Date Type Department Care Team (Late st Contact Info) Description 08/14/2017 Refill [facility] [address] [place] [address] [place] [address] Mary Mayers, CUAUHTEMOC-RN CARE TRANSITION [address] [place] [address] [place], [place] [id number] Attention deficit hyperactivity disorder (ADHD), unspecified ADHD type (Primary Dx) Social History Tobacco Use Types Packs/Day Years [...] Attention deficit hyperactivity disorder (ADHD), unspecified ADHD type- Primary documented in this encounter Additional Health Concerns Assessment Noted Time PHQ-9 Depression Total Score: 0 02/12/20 17 12:00 PM EDT documented as of this encounter Care Teams Rubber Press Operator Relationship Specialty Start Date End Date Gage Bradford MD [address] [facility] [place] [place] [address] PCP - General Internal Medicine 02/18/23 documented as of this encounter
--- OUTSIDE RECORDS SUMMARY | 2025-05-18 18:50 | XMS_ITS | Encounter Summary ---
Author Organization [facility] Address [id number] [address] [place] [address] Care Team Providers Care Sheepskin Pickler Name Role Phone Gage Bradford MD Primary Care Provider Reason for Visit * Reason Onset Date Comments Med Refill 12/28/2019 Encounter Details Date Type Department Care Team (Late st Contact Info) Description 12/28/2019 Refill [facility] [address] [place] [address] [place] [address] Mary Mayers, PEOPLESOFT ANALYST-WIND ENERGY ENGINEER [address] [place] [id number] Attention deficit hyperactivity disorder (ADHD), unspecified ADHD [...] and Family Once a week 09/03/2019 Attends Spiritism Services More than 4 times per year [...] Answer Date Recorded PHQ-2 Score 0 03/12/2019 [facility] [place] of Occupat ional Health - Occupational Stress [...] or suspected to have Coronavirus / COVID-19? Unable to assess 12/28/2019 1:02 PM EDT documented as of this encounter Plan of Treatment Not on file documented as of this encounter Visit Diagnoses Diagnosis Attention deficit hyperactivity disorder (ADHD), unspecified ADHD type Migraine without aura and with status migrainosus, not intractable documented in this encounter Additional Health Concerns Assessment Noted Time PHQ-9 Depression Total Score: 0 09/03/19 20 8:03 AM EST documented as of this encounter Care Teams Sheepskin Pickler Relationship Specialty Start Date End Date Gage Bradford MD [address] [place] [address] PCP - General Internal Medicine 02/18/23 documented as of this encounter
--- OUTSIDE RECORDS SUMMARY | 2025-05-18 18:50 | XMS_ITS | Encounter Summary ---
Author Organization [facility] Address [id number] [address] [place] [address] Care Team Providers Care Material Requirements Worker Name Role Phone Gage Bradford MD Primary Care Provider [phone] Reason for Visit * Reason Comments Med Refill Encounter Details Date Type Department Care Team (Late st Contact Info) Description 11/02/2019 Refill [facility] [address] [place] [address] [place] [phone] Mary Mayers, TRADE SHOW MANAGER-[facility] [address] [place] [id number] [place] [id number] Migraine without aura and with status migrainosus, [...] and Family Once a week 09/03/2019 Attends Christian Services More than 4 times per year [...] Answer Date Recorded PHQ-2 Score 0 03/12/2019 [facility] of Occupat ional Health - Occupational Stress [...] as of this encounter Visit Diagnoses Diagnosis Migraine without aura and with status migrainosus, not intractable documented in this encounter Additional Health Concerns Assessment Noted Time PHQ-9 Depression Total Score: 0 09/03/19 20 8:03 AM EST documented as of this encounter Care Teams Material Requirements Worker Relationship Specialty Start Date End Date Gage Bradford MD [address] [facility] [place] [address] PCP - General Internal Medicine 02/18/23 documented as of this encounter
--- OUTSIDE RECORDS SUMMARY | 2025-05-18 18:50 | XMS_ITS | Encounter Summary ---
Author Organization [facility] Address [id number] [address] [place] [address] Care Team Providers Care Mold Operator Name Role Phone Gage Bradford MD Primary Care Provider [phone] Encounter Details Date Type Department Care Team (Late st Contact Info) Description 01/13/2024 Orders Only [facility] [address] [place] [address] Gage Bradford MD [address] [place] [address] Attention deficit hyperactivity disorder (ADHD), predominantly [...] often do you attend chur ch or episcopalian services? More than 4 times per year 07/22/2021 Do you belong to any clubs o r organizations such as rastafarian groups, unions, fraternal or athletic groups, or [...] Answer Date Recorded Total Score 0 05/09/2022 [facility] of Occupat ional Health - Occupational [...] documented as of this encounter Care Teams Mold Operator Relationship Specialty Start Date End Date Gage Bradford MD [address] [facility] [place] [address] PCP - General Internal Medicine 02/18/23 documented as of this encounter
--- OUTSIDE RECORDS SUMMARY | 2025-05-18 18:50 | XMS_ITS | Encounter Summary ---
Author Organization [facility] Address [id number] [address] [place] [address] Care Team Providers Care Property Custodian Name Role Phone Gage Bradford MD Primary Care Provider [phone] Encounter Details Date Type Department Care Team (Late st Contact Info) Description 01/12/2024 Refill [facility] [address] [place] [address] [place] [address] Carolyn Estrella CMA Attention deficit hyperactivity disorder (ADHD), predominantly [...] often do you attend chur ch or congregation services? More than 4 times per year 07/22/2021 Do you belong to any clubs o r organizations such as anglican groups, unions, fraternal or athletic groups, or [...] Answer Date Recorded Total Score 0 05/09/2022 [facility] [place] of Occupat ional Health - Occupational Stress [...] Do you need help finding a l al career center and/or a training program? No [...] encounter Miscellaneous Notes * Telephone Encounter - Carolyn Estrella CMA - 01/12/2024 3:51 PM EDT Patient called stating her current pharmacy is out of stock of medications so she needs it sent to [facility] in [place] Please advise? documented in this encounter Plan of Treatment Not on file documented as of this encounter Visit Diagnoses Diagnosis Attention deficit hyperactivity disorder (ADHD), predominantly inattentive type documented in this encounter Additional Health Concerns Assessment Noted Time PHQ-9 Depression Total Score: 0 05/09/20 22 7:49 AM EDT documented as of this encounter Care Teams Property Custodian Relationship Specialty Start Date End Date Gage Bradford MD [address] [place] [address] PCP - General Internal Medicine 02/18/23 documented as of this encounter
--- OUTSIDE RECORDS SUMMARY | 2025-05-18 18:50 | XMS_ITS | Encounter Summary ---
Author Organization [facility] Address [id number] [address] [place] [address] Care Team Providers Care Associate Justice Name Role Phone Gage Bradford MD Primary Care Provider Reason for Visit * Reason Onset Date Comments Med Refill 01/01/2023 Encounter Details Date Type Department Care Team (Late st Contact Info) Description 01/01/2023 Refill [facility] [address] [place] [address] [place] [address] Mary Mayers, CATECHIST-PRECISION PRINTING WORKER [address] [place], [place] [id number] Migraine without aura and with status migrainosus, not intractable; Migraine with aura and with status migrainosus, not intractable [...] often do you attend chur ch or sabianism services? More than 4 times per year 07/22/2021 Do you belong to any clubs o r organizations such as congregation groups, unions, fraternal or athletic groups, or [...] Answer Date Recorded Total Score 0 05/09/2022 [facility] of Occupat ional Health - Occupational Stress [...] Recorded Do you need help finding a [facility] and/or a training program? No [...] aura and with status migrainosus, not intractable Migraine with aura and with status migrainosus, not intractable documented in this encounter Additional Health Concerns Assessment Noted Time PHQ-9 Depression Total Score: 0 05/09/20 22 7:49 AM EDT documented as of this encounter Care Teams Associate Justice Relationship Specialty Start Date End Date Gage Bradford MD [address] [facility] [place] [address] PCP - General Internal Medicine 02/18/23 documented as of this encounter
--- OUTSIDE RECORDS SUMMARY | 2025-05-18 18:50 | XMS_ITS | Encounter Summary ---
Author Organization [facility] Address [id number] [address] [place] [address] Care Team Providers Care Cnc Lathe Machine Operator Name Role Phone Gage Bradford MD Primary Care Provider [phone] Encounter Details Date Type Department Care Team (Late st Contact Info) Description 11/25/2022 Telephone [facility] [address] [place] [address] [place] [address] Mary Mayers, MANAGER TRANSPLANT-DIRECTOR OF DIRECT MARKETING [address] [facility] [address] [facility] [place] [address] Social History Tobacco Use Types Packs/Day Years [...] often do you attend chur ch or sabianist services? More than 4 times per year 07/22/2021 Do you belong to any clubs o r organizations such as yarsani groups, unions, fraternal or athletic groups, or [...] Answer Date Recorded Total Score 0 05/09/2022 [facility] of Occupat ional Health - [...] Recorded Do you need help finding a [facility] career center and/or a training program? [...] documented as of this encounter Care Teams Cnc Lathe Machine Operator Relationship Specialty Start Date End Date Gage Bradford MD [address] [facility] [place] [address] PCP - General Internal Medicine 02/18/23 documented as of this encounter
--- OUTSIDE RECORDS SUMMARY | 2025-05-18 18:50 | XMS_ITS | Encounter Summary ---
Author Organization [facility] Address [id number] [address] [place] [address] Care Team Providers Care Area Development Consultant Name Role Phone Gage Bradford MD Primary Care Provider [phone] Reason for Visit * Reason Comments Med Refill Encounter Details Date Type Department Care Team (Late st Contact Info) Description 12/03/2022 Refill [facility] [address] [place] [address] [place] [address] Mary Mayers, PARENT TRAINER-SHIP WIRER [address] [place] [phone] Migraine without aura and with status migrainosus, [...] often do you attend chur ch or roman catholic services? More than 4 times per year 07/22/2021 Do you belong to any clubs o r organizations such as episcopal groups, unions, fraternal or athletic groups, or [...] Answer Date Recorded Total Score 0 05/09/2022 [facility] of Occupat ional Health - Occupational [...] documented as of this encounter Care Teams Area Development Consultant Relationship Specialty Start Date End Date Gage Bradford MD [address] [place] [address] PCP - General Internal Medicine 02/18/23 documented as of this encounter
--- OUTSIDE RECORDS SUMMARY | 2025-05-18 18:50 | XMS_ITS | Encounter Summary ---
Author Organization [facility] Address [id number] [address] [place] [address] Care Team Providers Care Air Conditioning Coil Assembler Name Role Phone Gage Bradford MD Primary Care Provider [phone] Reason for Visit * Reason Onset Date Comments Med Refill 02/18/2018 Encounter Details Date Type Department Care Team (Late st Contact Info) Description 02/18/2018 Refill [facility] [address] [place] [address] Myra Schultz RMA Attention deficit hyperactivity disorder (ADHD), unspecified ADHD [...] documented as of this encounter Care Teams Air Conditioning Coil Assembler Relationship Specialty Start Date End Date Gage Bradford MD [address] [facility] [place] [address] PCP - General Internal Medicine 02/18/23 documented as of this encounter
--- OUTSIDE RECORDS SUMMARY | 2025-05-18 18:50 | XMS_ITS | Encounter Summary ---
Author Organization [facility] Address [id number] [place] [address] Care Team Providers Care Rehab Nurse Name Role Phone Gage Bradford MD Primary Care Provider [phone] Reason for Visit * Reason Onset Date Comments Med Refill 01/12/2024 Encounter Details Date Type Department Care Team (Late st Contact Info) Description 01/12/2024 Refill [facility] [address] [place] [address] [place] [address] Magali Benavidez CNA Attention deficit hyperactivity disorder (ADHD), predominantly inattentive [...] often do you attend chur ch or sikh services? More than 4 times per year 07/22/2021 Do you belong to any clubs o r organizations such as spiritism groups, unions, fraternal or athletic groups, or [...] Answer Date Recorded Total Score 0 05/09/2022 [facility] - Occupational Stress [...] Recorded Do you need help finding a [facility] and/or a training program? [...] encounter Miscellaneous Notes * Telephone Encounter - Magali Benavidez CNA - 01/12/2024 1:14 PM EDT Chad sent message through [email or web address] to inquire about having her Adderall sent to [facility] due to [facility] not having it in stock. documented in this encounter Plan of Treatment Not on file documented as of this encounter Visit Diagnoses Diagnosis Attention deficit hyperactivity disorder (ADHD), predominantly inattentive type documented in this encounter Additional Health Concerns Assessment Noted Time PHQ-9 Depression Total Score: 0 05/09/20 22 7:49 AM EDT documented as of this encounter Care Teams Rehab Nurse Relationship Specialty Start Date End Date Gage Bradford MD [address] [facility] [place] [address] PCP - General Internal Medicine 02/18/23 documented as of this encounter
--- OUTSIDE RECORDS SUMMARY | 2025-05-18 18:50 | XMS_ITS | Clinical Summary ---
Author Organization [facility] Address [address] [place] [address] Care Team Providers Care Production Ski Repairer Name Role Phone Unavailable Primary Care Provider Unavailabl e Social History Tobacco Use Types Packs/Day Years Used Date Smoking Tobacco: Never Assessed Comments Unknown Sex and Gender Information Value Date Recorded Sex Assigned at Not on file Legal Sex Female 10:18 PM EDT Gender Identity Not on file Sexual Orientation Not on file Plan of Treatment Not on file
== END 2025-05-18 18:47 | disposition home or self-care (01) ==
LOC: LAB 18:46
PROVIDERS: Visit Provider Nurse Practitioner Family
DX: Z01.419 Encounter for gynecological examination (general) (routine) without abnormal findings (principal)
CPT/HCPCS: 87624; 88175